=== PATIENT | female | born 1935 | race Caucasian/White ===

== ENCOUNTER 2017-02-11 05:38 | Emergency (ER) | payer MEDICARE, OTHER ==
[~2017-02-11] VITALS: Ht 182.9 cm; Wt 58.1 kg
[~2017-02-11 05:38] MED LIST: LEVOXYL PO; LOVA20TA4 PO; PREMARIN PO
[2017-02-11 07:31] VITALS: BP 147/86
[2017-02-11] MEDS ORDERED: TETANUS-DIPTH-ACEL PERTUSSIS 0.5ML SYRG IM ONE (07:45)
[2017-02-11] MEDS ORDERED: cefTRIAXone SOD 1,000 MG VL IM ONE (07:45)
[2017-02-11] MEDS ORDERED: NEOMYCIN-BACITRACIN-POLYM UNITDOSE PKG TOP OINT TOP ONE (07:45)
== END 2017-02-11 08:05 | disposition home or self-care (01) ==
LOC: ER 05:38
DX: S51.832A Puncture wound without foreign body of left forearm, initial encounter (principal); Z88.6 Allergy status to analgesic agent; W55.01XA Bitten by cat, initial encounter; Y93.89 Activity, other specified; Y99.8 Other external cause status; Y92.89 Other specified places as the place of occurrence of the external cause
CPT/HCPCS: 90471; 90715; 96372; 99284; J0696

== ENCOUNTER → 2018-09-09 | Outpatient (CLI) | payer MEDICARE, OTHER ==
[2018-09-09 10:39] LABS: Basophils # (auto) 0.1 uL; Basophils % (auto) 1.5 % (0.0-2.0); Eosinophils # (auto) 0.4 uL; Eosinophils % (auto) 11.9 % (0.0-7.0); Hematocrit 40.3 % (36.0-46.0); Hemoglobin 13.4 g/dL (12.2-16.2); Lymphocytes # (auto) 1.1 uL; Lymphocytes % (auto) 31.5 % (10.0-50.0); Mean Corpuscular Hemoglobin 30.5 pg (28.0-32.0); Mean Corpuscular Hgb Conc. 33.2 g/dL (32.0-36.0); Mean Corpuscular Volume 91.8 fL (80.0-100.0); Monocytes # (auto) 0.3 uL; Monocytes % (auto) 7.8 % (0.0-12.0); Neutrophils # (auto) 1.6 uL; Neutrophils % (auto) 47.3 % (37.0-80.0); Platelet Count (auto) 143 10^3/uL (140-450); Red Blood Cells 4.39 10^6/uL (4.0-5.20); Red Cell Distribution Width 12.8 % (11.8-14.3); White Blood Cell 3.5 10^3/uL (4.4-10.8)
[2018-09-09 11:04] LABS: Calcium 9.8 mg/dL (8.5-10.1); Potassium 3.8 mmol/L (3.5-5.1)
[2018-09-09 11:08] LABS: Folate (Folic Acid) 11.44 ng/mL (5.38-24)
[2018-09-09 11:09] LABS: BUN/Creatinine Ratio 16.8
[2018-09-09 22:39] LABS: Urine Bacteria FEW /hpf (None Seen); Urine Blood Negative /uL (Negative); Urine Specific Gravity 1.017 (1.001-1.035); Urine WBC 7 /hpf (0 - 5)
== END | disposition home or self-care (01) ==
LOC: LAB 09:18
PROVIDERS: ATTEND Nurse Practitioner
DX: E78.5 Hyperlipidemia, unspecified (principal); R63.4 Abnormal weight loss; Z79.899 Other long term (current) drug therapy
CPT/HCPCS: 36415; 80048; 80061; 81001; 82306; 82607; 82746; 84443; 85025

== ENCOUNTER → 2020-06-10 | Outpatient (CLI) | payer MEDICARE ==
[~2020-06-10] MED LIST changes: +CITA-73 PO; +DONE1TAB88 PO; +LEVO50TA61 PO; +LEVO750T8 PO; -LEVOXYL PO; -PREMARIN PO; +SACC250C PO
[2020-06-10 15:46] LABS: Basophils # (auto) 0 10 ^3/uL (0-0.2); Basophils % (auto) 0.9 % (0.0-2.0); Eosinophils # (auto) 0.5 10 ^3/uL (0-0.8); Eosinophils % (auto) 10.8 % (0.0-7.0); Hematocrit 37.9 % (36.0-46.0); Hemoglobin 12.8 g/dL (12.2-16.2); Lymphocytes # (auto) 1.1 10 ^3/uL (0.4-5.4); Lymphocytes % (auto) 24.1 % (10.0-50.0); Mean Corpuscular Hemoglobin 31.1 pg (28.0-32.0); Mean Corpuscular Hgb Conc. 33.9 g/dL (32.0-36.0); Mean Corpuscular Volume 91.7 fL (80.0-100.0); Monocytes # (auto) 0.5 10 ^3/uL (0-1.3); Monocytes % (auto) 10.9 % (0.0-12.0); Neutrophils # (auto) 2.5 10 ^3/uL (1.6-8.6); Neutrophils % (auto) 53.3 % (37.0-80.0); Nucleated Red Blood Cells % 0.1 %; Platelet Count (auto) 190 10^3/uL (140-450); Red Blood Cells 4.13 10^6/uL (4.0-5.20); Red Cell Distribution Width 13.4 % (11.8-14.3); White Blood Cell 4.8 10^3/uL (4.4-10.8)
[2020-06-10 15:58] LABS: Urine Bacteria NONE SEEN /hpf (None Seen); Urine Blood Negative /uL (Negative); Urine Mucus FEW (None Seen); Urine Specific Gravity 1.028 (1.001-1.035); Urine WBC 10 /hpf (0 - 5)
[2020-06-10 16:20] LABS: Albumin 3.4 g/dL (3.4-5.0); BUN/Creatinine Ratio 18.4; Calcium 8.7 mg/dL (8.5-10.1)
[2020-06-10 16:22] LABS: Bilirubin, Total 0.4 mg/dL (0.2-1.0); Total Protein 7.1 g/dL (6.4-8.2)
== END | disposition home or self-care (01) ==
LOC: LAB 15:30
PROVIDERS: ATTEND Student in an Organized Health Care Education/Training Program
DX: I10 Essential (primary) hypertension (principal); N39.0 Urinary tract infection, site not specified; E03.9 Hypothyroidism, unspecified
CPT/HCPCS: 36415; 80053; 81001; 84443; 85025; 87086

== ENCOUNTER 2020-08-30 12:23 | Inpatient (IN) | payer MEDICARE ==
[~2020-08-30] VITALS: Ht 180.3 cm; Wt 84.3 kg
[2020-08-30] MEDS ORDERED: MORPHINE SULFATE 4 MG/ML SYR/VIAL IV ONE (13:00)
[2020-08-30] MEDS ORDERED: ONDANSETRON HCL 4 MG/2 ML VIAL IV ONE (13:00)
[2020-08-30 14:30] LABS: Basophils # (auto) 0.1 10 ^3/uL (0-0.2); Basophils % (auto) 0.9 % (0.0-2.0); Eosinophils # (auto) 0.1 10 ^3/uL (0-0.8); Hematocrit 32.3 % (36.0-46.0); Hemoglobin 10.9 g/dL (12.2-16.2); Lymphocytes # (auto) 0.7 10 ^3/uL (0.4-5.4); Lymphocytes % (auto) 10.7 % (10.0-50.0); Mean Corpuscular Hemoglobin 30.8 pg (28.0-32.0); Mean Corpuscular Hgb Conc. 33.8 g/dL (32.0-36.0); Mean Corpuscular Volume 91.1 fL (80.0-100.0); Monocytes # (auto) 0.4 10 ^3/uL (0-1.3); Monocytes % (auto) 5.8 % (0.0-12.0); Neutrophils # (auto) 5.6 10 ^3/uL (1.6-8.6); Neutrophils % (auto) 80.6 % (37.0-80.0); Potassium 3.4 mmol/L (3.5-5.1); Red Blood Cells 3.54 10^6/uL (4.0-5.20); Red Cell Distribution Width 12.8 % (11.8-14.3)
[2020-08-30] MEDS ORDERED: ACETAMINOPHEN 500 MG TAB PO PRN (14:30)
[2020-08-30] MEDS ORDERED: HYDROcodone-ACET 5/325MG TAB PO PRN (14:30)
[2020-08-30] MEDS ORDERED: ONDANSETRON HCL 4 MG/2 ML VIAL IV PRN (14:30)
[2020-08-30 14:39] LABS: Albumin 2.6 g/dL (3.4-5.0); BUN/Creatinine Ratio 21.3; Bilirubin, Total 0.3 mg/dL (0.2-1.0); Calcium 7.4 mg/dL (8.5-10.1); Total Protein 5.3 g/dL (6.4-8.2)
[2020-08-30 15:21] LABS: INR 1.12 (0.9-1.15); Partial Thromboplastin Time 26.5 sec (23.0-31.2)
[2020-08-30 22:00] VITALS: BP 150/69
[2020-08-30] MEDS: MORPHINE SULFATE INJECTION 2 MG/ML SYRG IV PRN (22:40)
[2020-08-31] VITALS (14 sets, daily range): BP systolic 84–139; BP diastolic 37–92
[2020-08-31] MEDS: MORPHINE SULFATE INJECTION 2 MG/ML SYRG IV PRN (04:03)
[2020-08-31] MEDS: PANTOPRAZOLE 40 MG TAB PO SCH (10:00)
[2020-08-31] MEDS ORDERED: FAMOTIDINE 20 MG TAB PO SCH (10:00)
[2020-08-31] MEDS ORDERED: KETOROLAC TROMETH 30 MG/ML 1ML VIAL ONE (13:08)
[2020-08-31] MEDS ORDERED: EPINEPHrine HCL 1 MG/1 ML AMP ONE (13:08)
[2020-08-31] MEDS ORDERED: VANCOMYCIN HCL 1000 MG VL ONE (13:08)
[2020-08-31] MEDS ORDERED: TRANEXAMIC ACID 20 ML ONE (13:09)
[2020-08-31] MEDS ORDERED: BUPIVACAINE 0.25% INJ 50ML VIAL ONE (13:09)
[2020-08-31] MEDS ORDERED: BUPIVACAINE 0.5% P/F INJ 10 ML VIAL ONE (13:39)
[2020-08-31] MEDS ORDERED: ceFAZolin 1GM/50ML 100 ML IV ONE (13:51)
[2020-08-31] MEDS ORDERED: PROPOFOL 10 MG/ML 20 ML IV ONE (13:51)
[2020-08-31] MEDS ORDERED: ePHEDrine SULFATE 50 MG/ML AMP IV ONE (13:51)
[2020-08-31] MEDS ORDERED: MORPHINE SULF PF 2 MG/2 ML SYRG ONE (13:52)
[2020-08-31] MEDS ORDERED: fentaNYL CITRATE 100 MCG/2 ML VL ONE (13:56)
[2020-08-31] MEDS ORDERED: DexAMETHasone SOD PHOS 10MG/1ML VIAL INJ ONE (15:06)
[2020-08-31] MEDS ORDERED: LACTATED RINGER'S 1,000 ML IV SCH (16:00)
[2020-08-31] MEDS ORDERED: HYDROcodone-ACET 10/325MG TAB PO PRN (16:00)
[2020-08-31] MEDS ORDERED: HYDROmorphone HCL 2 MG/ML VL IV PRN ×2 (16:15)
[2020-08-31] MEDS ORDERED: NALOXONE HCL 0.4 MG/ML VIAL IV PRN (16:15)
[2020-08-31] MEDS ORDERED: ONDANSETRON HCL 4 MG/2 ML VIAL IV PRN (16:15)
[2020-08-31] MEDS: LACTATED RINGER'S 1,000 ML IV SCH (17:33)
[2020-08-31] MEDS: ceFAZolin 1GM/50ML 50 ML IV SCH (22:00)
[2020-09-01] VITALS (18 sets, daily range): BP systolic 99–138; BP diastolic 39–96
[2020-09-01] MEDS: LACTATED RINGER'S 1,000 ML IV SCH ×3 (02:15→22:15)
[2020-09-01 06:04] LABS: Basophils # (auto) 0 10 ^3/uL (0-0.2); Basophils % (auto) 0.1 % (0.0-2.0); Eosinophils # (auto) 0 10 ^3/uL (0-0.8); Eosinophils % (auto) 0.1 % (0.0-7.0); Hematocrit 33.7 % (36.0-46.0); Hemoglobin 11.4 g/dL (12.2-16.2); Lymphocytes # (auto) 0.5 10 ^3/uL (0.4-5.4); Lymphocytes % (auto) 4.1 % (10.0-50.0); Mean Corpuscular Hemoglobin 31.3 pg (28.0-32.0); Mean Corpuscular Hgb Conc. 33.7 g/dL (32.0-36.0); Mean Corpuscular Volume 92.7 fL (80.0-100.0); Monocytes % (auto) 7.5 % (0.0-12.0); Neutrophils # (auto) 11.5 10 ^3/uL (1.6-8.6); Neutrophils % (auto) 88.2 % (37.0-80.0); Red Blood Cells 3.63 10^6/uL (4.0-5.20)
[2020-09-01] MEDS: ceFAZolin 1GM/50ML 50 ML IV SCH (06:15)
[2020-09-01 06:26] LABS: BUN/Creatinine Ratio 27.2; Calcium 8.6 mg/dL (8.5-10.1); Potassium 4.5 mmol/L (3.5-5.1)
[2020-09-01] MEDS ORDERED: ERGOCALCIFEROL 50,000 UNIT(1.25MG) CAP PO SCH (09:30)
[2020-09-01] MEDS: RIVAROXABAN 10 MG TAB PO SCH (09:59)
[2020-09-01] MEDS: PANTOPRAZOLE 40 MG TAB PO SCH (09:59)
[2020-09-01] MEDS ORDERED: HALOPERIDOL LACTATE 5 MG/ML INJ VIAL IM PRN (14:15)
[2020-09-01 19:13] LABS: Urine Bacteria FEW /hpf (None Seen); Urine Blood 3+ /uL (Negative); Urine Budding Yeast OCCASIONAL /hpf (None Seen); Urine Mucus FEW (None Seen); Urine Specific Gravity 1.023 (1.001-1.035); Urine WBC 24 /hpf (0 - 5)
[2020-09-02 05:00] VITALS: BP 139/64
[2020-09-02 05:54] LABS: Basophils # (auto) 0 10 ^3/uL (0-0.2); Basophils % (auto) 0.6 % (0.0-2.0); Eosinophils # (auto) 0.3 10 ^3/uL (0-0.8); Eosinophils % (auto) 3.9 % (0.0-7.0); Hematocrit 34.1 % (36.0-46.0); Hemoglobin 11.6 g/dL (12.2-16.2); Lymphocytes # (auto) 0.6 10 ^3/uL (0.4-5.4); Lymphocytes % (auto) 7.5 % (10.0-50.0); Mean Corpuscular Hemoglobin 31.2 pg (28.0-32.0); Mean Corpuscular Hgb Conc. 34.1 g/dL (32.0-36.0); Mean Corpuscular Volume 91.3 fL (80.0-100.0); Monocytes # (auto) 0.7 10 ^3/uL (0-1.3); Monocytes % (auto) 8.5 % (0.0-12.0); Neutrophils # (auto) 6.1 10 ^3/uL (1.6-8.6); Neutrophils % (auto) 79.5 % (37.0-80.0); Red Blood Cells 3.73 10^6/uL (4.0-5.20); Red Cell Distribution Width 13.1 % (11.8-14.3); White Blood Cell 7.7 10^3/uL (4.4-10.8)
[2020-09-02 06:15] LABS: BUN/Creatinine Ratio 32.8; Calcium 8.7 mg/dL (8.5-10.1); Magnesium 1.9 mg/dL (1.6-2.6); Potassium 4.3 mmol/L (3.5-5.1)
[2020-09-02] MEDS: LACTATED RINGER'S 1,000 ML IV SCH ×2 (06:22→18:15)
[2020-09-02 09:00] VITALS: BP 120/54
[2020-09-02] MEDS: PANTOPRAZOLE 40 MG TAB PO SCH (09:57)
[2020-09-02] MEDS: RIVAROXABAN 10 MG TAB PO SCH (09:59)
[2020-09-02 13:00] VITALS: BP 137/68
[2020-09-02 17:00] VITALS: BP_SYST 157
[2020-09-02 21:14] VITALS: BP 141/57
[2020-09-03] MEDS: LACTATED RINGER'S 1,000 ML IV SCH ×2 (04:15→12:42)
[2020-09-03 05:16] VITALS: BP 147/62
[2020-09-03 08:00] VITALS: BP 134/66
[2020-09-03] MEDS: RIVAROXABAN 10 MG TAB PO SCH (11:02)
[2020-09-03] MEDS: PANTOPRAZOLE 40 MG TAB PO SCH (11:02)
[2020-09-03 13:03] VITALS: BP 130/57
[2020-09-03 16:45] VITALS: BP 145/65
[2020-09-03 17:46] VITALS: BP 145/65
== END 2020-09-03 19:25 | DRG 522 ==
LOC: EDBD 12:23 → ER 12:23 → OVERFLOW 14:21 → WEST WING 21:59 → TELE-WESTW 08-31 19:57 → WEST WING 09-02 16:32
PROVIDERS: ADMIT Nurse Practitioner Acute Care; ATTEND Internal Medicine
PROC: 0SRS0J9 Replacement of Left Hip Joint, Femoral Surface with Synthetic Substitute, Cemented, Open Approach (ICD-10-PCS; principal; 2020-08-31 13:51)
DX: S72.012A Unspecified intracapsular fracture of left femur, initial encounter for closed fracture (principal); E44.0 Moderate protein-calorie malnutrition; G93.40 Encephalopathy, unspecified; M19.90 Unspecified osteoarthritis, unspecified site; M81.0 Age-related osteoporosis without current pathological fracture; E07.9 Disorder of thyroid, unspecified; E87.6 Hypokalemia; D64.9 Anemia, unspecified; Y93.K1 Activity, walking an animal; E03.9 Hypothyroidism, unspecified; E78.5 Hyperlipidemia, unspecified; I70.0 Atherosclerosis of aorta; Z20.822 Contact with and (suspected) exposure to COVID-19; W01.0XXA Fall on same level from slipping, tripping and stumbling without subsequent striking against object, initial encounter; Y93.89 Activity, other specified; Y92.89 Other specified places as the place of occurrence of the external cause; Y99.8 Other external cause status; Z68.23 Body mass index [BMI] 23.0-23.9, adult
CPT/HCPCS: 36415; 51702; 71045; 72170; 73502; 80048; 80053; 81001; 82306; 83036; 83735; 85025; 85610; 85730; 86850; 86900; 86901; 87086; 87426; 93005; 93306; 96374; 96375; 97110; 97116; 97530; G0378; J0171; J0690; J1100; J1885; J2405; J2704; J3490

== ENCOUNTER → 2021-08-18 | Outpatient (CLI) | payer MEDICARE | END | disposition home or self-care (01) | LOC: LAB 11:31 | PROVIDERS: ATTEND Nurse Practitioner Family | DX: N39.0 Urinary tract infection, site not specified (principal) | CPT/HCPCS: 87086; 87088 ==

== ENCOUNTER 2022-06-06 12:44 | Emergency (ER) | payer MEDICARE ==
[~2022-06-06] VITALS: Ht 182.9 cm; Wt 72.2 kg
[2022-06-06 16:02] VITALS: BP 135/58
[2022-06-06] MEDS ORDERED: ACET1CAP14 PO (16:37)
[2022-06-06] MEDS ORDERED: CYCL-837 PO (16:37)
[2022-06-06] MEDS ORDERED: ACETAMINOPHEN 500 MG TAB PO ONE (16:45)
== END 2022-06-06 16:55 | disposition home or self-care (01) ==
LOC: ER 12:44
DX: S63.501A Unspecified sprain of right wrist, initial encounter (principal); E78.5 Hyperlipidemia, unspecified; E03.9 Hypothyroidism, unspecified; Z90.89 Acquired absence of other organs; Z79.899 Other long term (current) drug therapy; Z79.2 Long term (current) use of antibiotics; W18.39XA Other fall on same level, initial encounter; Y93.89 Activity, other specified; Y92.89 Other specified places as the place of occurrence of the external cause; Y99.8 Other external cause status
CPT/HCPCS: 73110

== ENCOUNTER 2022-07-06 14:31 | Emergency (ER) | payer MEDICARE ==
[~2022-07-06] VITALS: Ht 182.9 cm; Wt 69.9 kg
[~2022-07-06 14:31] MED LIST changes: +ACET1CAP14 PO; +CYCL-837 PO
[2022-07-06 17:40] VITALS: BP 164/75
[2022-07-06] MEDS ORDERED: MELO7.5T9 PO (17:59)
== END 2022-07-06 18:10 | disposition home or self-care (01) ==
LOC: ER 14:31
DX: M19.041 Primary osteoarthritis, right hand (principal); M79.641 Pain in right hand; X58.XXXA Exposure to other specified factors, initial encounter; Y93.89 Activity, other specified; Y92.89 Other specified places as the place of occurrence of the external cause; Y99.8 Other external cause status
CPT/HCPCS: 29125; 73130

== ENCOUNTER → 2022-09-28 | Outpatient (CLI) | payer MEDICARE ==
[~2022-09-28] MED LIST changes: +MELO7.5T9 PO
== END | disposition home or self-care (01) ==
LOC: LAB 09:20
PROVIDERS: ATTEND Physician Assistant
DX: R19.7 Diarrhea, unspecified (principal)
CPT/HCPCS: 85048; 87045; 87427; 87493

== ENCOUNTER → 2022-09-28 | Outpatient (CLI) | payer MEDICARE ==
[2022-09-28 10:37] LABS: Basophils # (auto) 0.1 10 ^3/uL (0-0.2); Basophils % (auto) 1.1 % (0.0-2.0); Eosinophils # (auto) 0.3 10 ^3/uL (0-0.8); Eosinophils % (auto) 5.6 % (0.0-7.0); Hematocrit 36.1 % (36.0-46.0); Hemoglobin 11.8 g/dL (12.2-16.2); Lymphocytes # (auto) 1.2 10 ^3/uL (0.4-5.4); Lymphocytes % (auto) 24.1 % (10.0-50.0); Mean Corpuscular Hemoglobin 30.4 pg (28.0-32.0); Mean Corpuscular Hgb Conc. 32.7 g/dL (32.0-36.0); Mean Corpuscular Volume 92.9 fL (80.0-100.0); Monocytes # (auto) 0.4 10 ^3/uL (0-1.3); Monocytes % (auto) 8.3 % (0.0-12.0); Neutrophils # (auto) 3.1 10 ^3/uL (1.6-8.6); Neutrophils % (auto) 60.9 % (37.0-80.0); Nucleated Red Blood Cells % 0.1 %; Red Blood Cells 3.88 10^6/uL (4.0-5.20); Red Cell Distribution Width 13.2 % (11.8-14.3); White Blood Cell 5.1 10^3/uL (4.4-10.8)
[2022-09-28 10:50] LABS: Urine Bacteria NONE SEEN /hpf (None Seen); Urine Blood Negative /uL (Negative); Urine Mucus FEW (None Seen); Urine Specific Gravity 1.029 (1.001-1.035); Urine WBC 30 /hpf (0 - 5)
[2022-09-28 11:22] LABS: Potassium 4.2 mmol/L (3.5-5.1)
[2022-09-28 11:27] LABS: Albumin 3.8 g/dL (3.4-5.0); BUN/Creatinine Ratio 22.5 (10.0-20.0); Calcium 9.1 mg/dL (8.5-10.1)
[2022-09-28 11:54] LABS: Bilirubin, Total 0.6 mg/dL (0.2-1.0); Total Protein 6.9 g/dL (6.4-8.2)
== END | disposition home or self-care (01) ==
LOC: LAB 10:00
DX: N18.31 Chronic kidney disease, stage 3a (principal); E78.5 Hyperlipidemia, unspecified; E03.9 Hypothyroidism, unspecified; D64.9 Anemia, unspecified; R35.1 Nocturia
CPT/HCPCS: 36415; 80053; 80061; 81001; 84439; 84443; 85025; 87086; 87088; 87186

== ENCOUNTER 2023-12-06 20:41 | Emergency (ER) | payer MEDICARE ==
[~2023-12-06] VITALS: Ht 182.9 cm; Wt 55.4 kg
[2023-12-06 21:00] VITALS: BP 106/57; PULSE 68; RESP 14; O2SAT 96
[2023-12-06 22:27] LABS: Urine Bacteria FEW /hpf (None Seen); Urine Blood 2+ /uL (Negative); Urine Clarity Turbid (Clear); Urine Color Yellow (Yellow); Urine Protein, UAD TRACE (Negative); Urine Specific Gravity 1.016 (1.001-1.035); Urine Urobilinogen Normal (Negative); Urine WBC 21 /hpf (0 - 5)
[2023-12-06] MEDS ORDERED: CIPR-173 PO (22:29)
[2023-12-06] MEDS: CIPROFLOXACIN HCL 500 MG TAB PO ONE (23:46)
== END 2023-12-06 23:46 | disposition home or self-care (01) ==
LOC: ER 20:41
DX: N39.0 Urinary tract infection, site not specified (principal); E78.5 Hyperlipidemia, unspecified; Z88.0 Allergy status to penicillin
CPT/HCPCS: 81001; 82962